=== PATIENT | female | born 1985 ===

== ENCOUNTER 2016-11-28 15:41 | Emergency (ER) | payer SELFPAY ==
[2016-11-28 15:41] VITALS: BMI 27.8
[2016-11-28 15:47] VITALS: BP 106/59; PULSE 83; RESP 18; TEMP 98.1; O2SAT 99
--- NOTE | 2016-11-28 16:03 | ED PDOC ---
Upper Extremity Pain/Injury Time Seen by Provider: 11/28/16 16:03 Chief Complaint (Nursing): Upper Extremity Problem/Injury Chief Complaint (Provider): finger laceration History Per: Patient Additional Complaint(s): 30-year-old right hand dominant female presents with puncture wound to left fourth digit sustained this past Saturday. Patient states she was chopping vegetables when she accidentally cut her finger. Patient states she sliced the top off of a wart that has been on her finger for several years. She has had intermittent bleeding since this past Saturday. Tetanus is up-to-date. Patient denies any pain, numbness or tingling to affected area. No medical attention was sought Saturday at time of incident. Past Medical History Reviewed: Historical Data, Nursing Documentation, Vital Signs Vital Signs: Last Vital Signs Temp 98.1 F 11/28/16 15:45 Pulse 83 11/28/16 15:45 Resp 18 11/28/16 15:45 BP 106/59 L 11/28/16 15:45 Pulse Ox 99 11/28/16 15:45 - Medical History PMH: No Chronic Diseases - Surgical History Surgical History: (x 2) - Family History Family History: States: No Known Family Hx - Living Arrangements Living Arrangements: With Family - Social History Current smoker - smoking cessation education provided: No Alcohol: None Drugs: Denies - Immunization History Hx Tetanus Toxoid Vaccination: Yes - Home Medications Home Medications: Ambulatory Orders Medication Instructions Recorded Nitrofurantoin Macrocrystals 100 mg PO BID #14 cap 02/19/16 [Macrobid] Multivit/Folic Acid/I 1 tab PO DAILY 08/30/16 [] oxyCODONE/Acetaminophen [Percocet 1 ea PO Q4 PRN 1 Days 09/02/16 5/325 mg Tab] - Allergies Allergies/Adverse Reactions: Allergies Allergy/AdvReac Type Severity Reaction Status Date / Time No Known Allergies Allergy Verified 11/28/16 15:45 Review of Systems ROS Statement: Except As Marked, All Systems Reviewed And Found Negative Constitutional: Negative for: Fever Musculoskeletal: Positive for: Other (puncture wound left hand) Physical Exam - Reviewed Nursing Documentation Reviewed: Yes Vital Signs Reviewed: Yes - Physical Exam Appears: Positive for: Well, No Acute Distress Skin: Negative for: Rash Extremity: Positive for: Other (Actively bleeding superficial puncture wound noted to palmar aspect of the left fourth digit proximally on volar aspect, full range of motion of the affected digit, normal sensation surrounding the wound and distally) Neurologic/Psych: Positive for: Alert, Oriented - ECG O2 Sat by Pulse Oximetry: 99 Pulse Ox Interpretation: Normal Medical Decision Making Medical Decision Making: Impression: puncture wound Procedure Note: Wound was cleansed with normal saline and Betadine, Gelfoam and sterile gauze wrap applied to affected area, neurovascular intact status post placement. Procedure tolerated well by patient with no complications. Patient was given wound care instructions. Disposition - Clinical Impression Clinical Impression: Puncture wound of finger - Patient ED Disposition Is Patient to be Admitted: No Counseled Patient/Family Regarding: Diagnosis, Need For Followup - Disposition Referrals: [facility] [Outside] Disposition: Routine/Home Disposition Time: 17:20 Condition: STABLE Additional Instructions: Keep bandage in place for 2 days, after 2 days remove gauze and excess foam. Over the counter tylenol for pain as needed. Follow up with primary care doctor in 2-3 days. Instructions: Puncture Wound (ED) Print Language: VIETNAMESE
[2016-11-28] MEDS ORDERED: Absorbable Gelatin Sponge Size 12-7 TP STA (17:06)
== END 2016-11-28 18:12 | disposition home or self-care (01) ==
LOC: H.ER 15:41
DX: S61.205A Unspecified open wound of left ring finger without damage to nail, initial encounter (principal); W26.0XXA Contact with knife, initial encounter; Y92.000 Kitchen of unspecified non-institutional (private) residence as the place of occurrence of the external cause

== ENCOUNTER 2016-12-14 13:54 | Emergency (ER) | payer OTHER ==
[2016-12-14 13:54] VITALS: BMI 27.8
[2016-12-14 14:40] VITALS: BP 122/77; PULSE 76; RESP 16; TEMP 97; O2SAT 99
--- NOTE | 2016-12-14 16:18 | ED PDOC ---
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 The patient reports that over the past several days she has noticed the wound has increased in size and has developed increased pain. She denies having any fever, new trauma or discharge from the affected area. Past Medical History Reviewed: Historical Data, Nursing Documentation, Vital Signs Vital Signs: Last Vital Signs Temp 97.0 F L 12/14/16 14:35 Pulse 76 12/14/16 14:35 Resp 16 12/14/16 14:35 BP 122/77 12/14/16 14:35 Pulse Ox 99 12/14/16 16:47 - Medical History PMH: No Chronic Diseases - Surgical History Surgical History: (x 2) - Family History Family History: States: No Known Family Hx - Immunization History Hx Tetanus Toxoid Vaccination: Yes - Home Medications Home Medications: Ambulatory Orders Medication Instructions Recorded Nitrofurantoin Macrocrystals 100 mg PO BID #14 cap 02/19/16 [Macrobid] Multivit/Folic Acid/I 1 tab PO DAILY 08/30/16 [] oxyCODONE/Acetaminophen [Percocet 1 ea PO Q4 PRN 1 Days 09/02/16 5/325 mg Tab] - Allergies Allergies/Adverse Reactions: Allergies Allergy/AdvReac Type Severity Reaction Status Date / Time No Known Allergies Allergy Verified 11/28/16 15:45 Review of Systems Constitutional: Negative for: Fever Musculoskeletal: Positive for: Other (puncture wound to the left ring finger; no discharge; no new trauma) Physical Exam - Reviewed Nursing Documentation Reviewed: Yes Vital Signs Reviewed: Yes - Physical Exam Appears: Positive for: Non-toxic, No Acute Distress Skin: Positive for: Normal Color, Warm, Dry Extremity: Positive for: Normal ROM (full range of motion actively of left ring finger.), Other (left fourth digit on landeros surface of proximal phalynx there is a circular erythematous plaque without surrounding erythema/pus.) Neurologic/Psych: Positive for: Alert, Oriented - ECG O2 Sat by Pulse Oximetry: 99 (RA) Pulse Ox Interpretation: Normal Medical Decision Making Medical Decision Makin:24 Clinical impression: pyogenic granuloma Initial Plan: I&D; refer to procedure note Patient is medically stable, and requires no further treatment in the ED at this time. Patient will be discharged home. Counseling was provided and all questions were answered regarding diagnosis and need for follow up with PCP. There is agreement to discharge plan. Return if symptoms persist or worsen. Scribe Attestation: Documented by Colette Cruz training under Radha Verde, acting as a scribe for Dalton Lopez PA-C. Provider Scribe Attestation: All medical record entries made by the Scribe were at my direction and personally dictated by me. I have reviewed the chart and agree that the record accurately reflects my personal performance of the history, physical exam, medical decision making, and the department course for this patient. I have also personally directed, reviewed, and agree with the discharge instructions and disposition. Disposition - Clinical Impression Clinical Impression: Pyogenic granuloma - Patient ED Disposition Is Patient to be Admitted: No Counseled Patient/Family Regarding: Diagnosis, Need For Followup - Disposition Referrals: [facility] [Outside] [facility] [Outside] Mina Shannon MD [Staff Provider] - Disposition: Routine/Home Disposition Time: 15:30 Condition: STABLE Additional Instructions: You have a pyogenic granuloma. You need to see a hand specialist to remove it. Instructions: Acute Rash (ED) Print Language: FRISIAN
== END 2016-12-14 15:55 | disposition home or self-care (01) ==
LOC: H.ER 13:54
DX: L98.0 Pyogenic granuloma (principal)

== ENCOUNTER 2018-01-07 20:07 | Emergency (ER) | payer SELFPAY ==
[2018-01-07 20:07] VITALS: BMI 27.8
[2018-01-07 20:16] VITALS: BP 105/72; PULSE 90; RESP 16; TEMP 97.3; O2SAT 99
[2018-01-07 21:36] LABS: HEMOGLOBIN 13.3 g/dL (12.0-16.0); MEAN CELL VOLUME 90.8 fl (81.0-99.0); MEAN CORPUSCULAR HEMOGLOBIN 30.9 pg (27.0-31.0); MEAN CORPUSCULAR HGB CONC 34.1 g/dL (33.0-37.0); RBC 4.29 Mil/uL (3.80-5.20); RED CELL DISTRIBUTION WIDTH 12.7 % (11.5-14.5); WHITE BLOOD COUNT 7.8 K/uL (4.8-10.8)
[2018-01-07 21:43] LABS: BLOOD UREA NITROGEN 12 mg/dl (7-17); CALCIUM 9.5 mg/dL (8.4-10.2); GFR AFRICAN-AMERICAN > 60; GFR NON-AFRICAN AMERICAN > 60
--- NOTE | 2018-01-07 22:21 | ED PDOC ---
HPI: Abdomen Time Seen by Provider: 01/07/18 20:41 Chief Complaint (Nursing): Abdominal Pain History Per: Patient History/Exam Limitations: no limitations Onset/Duration Of Symptoms: Days Current Symptoms Are (Timing): Still Present Location Of Pain/Discomfort: LLQ, Suprapubic Quality Of Discomfort: Cramping Additional Complaint(s): No PMHx, presenting with lower abdominal pain and vaginal bleeding, states it feels like a normal period, states that she had positive home test and her LMP was 11/21/17. Denies fevers, nausea, vomiting, diarrhea, lightheadedness, or other symptoms. Past Medical History Reviewed: Historical Data, Nursing Documentation, Vital Signs Vital Signs: Last Vital Signs Temp 97.3 F L 01/07/18 20:14 Pulse 90 01/07/18 20:14 Resp 16 01/07/18 20:14 BP 105/72 01/07/18 20:14 Pulse Ox 99 01/07/18 22:21 - Surgical History Surgical History: (x 2) - Family History Family History: States: Unknown Family Hx - Immunization History Hx Tetanus Toxoid Vaccination: Yes - Home Medications Home Medications: Ambulatory Orders Medication Instructions Recorded Nitrofurantoin Macrocrystals 100 mg PO BID #14 cap 02/19/16 [Macrobid] Multivit/Folic Acid/I 1 tab PO DAILY 08/30/16 [] oxyCODONE/Acetaminophen [Percocet 1 ea PO Q4 PRN 1 Days tab 09/02/16 5/325 mg Tab] - Allergies Allergies/Adverse Reactions: Allergies Allergy/AdvReac Type Severity Reaction Status Date / Time No Known Allergies Allergy Verified 01/07/18 20:14 Review of Systems ROS Statement: Except As Marked, All Systems Reviewed And Found Negative Gastrointestinal: Positive for: Abdominal Pain Genitourinary Female: Positive for: Vaginal Bleeding Physical Exam - Reviewed Nursing Documentation Reviewed: Yes Vital Signs Reviewed: Yes - Physical Exam Appears: Positive for: Well, Non-toxic, No Acute Distress Head Exam: Positive for: ATRAUMATIC, NORMAL INSPECTION, NORMOCEPHALIC Skin: Positive for: Normal Color, Warm, DRY Eye Exam: Positive for: EOMI, Normal appearance, PERRL ENT: Positive for: Normal ENT Inspection Neck: Positive for: Normal, Painless ROM Cardiovascular/Chest: Positive for: Regular Rate, Rhythm Respiratory: Positive for: CNT, Normal Breath Sounds Gastrointestinal/Abdominal: Positive for: Normal Exam, Soft Back: Positive for: Normal Inspection Extremity: Positive for: Normal ROM Neurologic/Psych: Positive for: Alert, Oriented - Laboratory Results Result Diagrams: 01/07/18 21:27 01/07/18 21:27 - ECG O2 Sat by Pulse Oximetry: 99 Pulse Ox Interpretation: Normal Medical Decision Making Medical Decision MakinPM A/P: Patient presenting with lower abd pain, vb -patient not rpegnant on urine -will check beta hcg -likely having miscarriage -beta hcg is 13, likely going down, advised patient to return in 2 days for repeat beta. Disposition - Clinical Impression Clinical Impression: Spontaneous - Disposition [facility]] Disposition: Routine/Home Disposition Time: 23:54 Condition: STABLE Additional Instructions: Por favor, regrese a la everardo de emergencia en dos butler para chequiar la bailee por BETA HCT (la prueba de embarasso). Instructions: Miscarriage, Dealing With Miscarriage Forms: [facility] (Kiswahili) Print Language: SWEDISH
== END 2018-01-07 23:23 | disposition home or self-care (01) ==
LOC: H.ER 20:07
DX: O03.9 Complete or unspecified spontaneous abortion without complication (principal)

== ENCOUNTER 2018-01-09 14:21 | Emergency (ER) | payer OTHER ==
[2018-01-09 14:21] VITALS: BMI 27.8
[2018-01-09 14:49] VITALS: O2SAT 99
[2018-01-09 15:24] LABS: BASO % 0.7 % (0.0-2.0); EOS % 0.6 % (0.0-4.0); HEMOGLOBIN 13.7 g/dL (12.0-16.0); LYMPH # 2.9 K/uL (1.0-4.3); LYMPH % 43.2 % (20.0-40.0); MEAN CELL VOLUME 91.5 fl (81.0-99.0); MEAN CORPUSCULAR HEMOGLOBIN 31.9 pg (27.0-31.0); MEAN CORPUSCULAR HGB CONC 34.8 g/dL (33.0-37.0); MEAN PLATELET VOLUME 8.4 fl (7.2-11.7); MONO # 0.5 K/uL (0.0-0.8); MONO % 7.6 % (0.0-10.0); NEUT # 3.2 K/uL (1.8-7.0); NEUT % 47.9 % (50.0-75.0); NRBC % 0.1 % (0.0-0.0); RBC 4.3 Mil/uL (3.80-5.20); RED CELL DISTRIBUTION WIDTH 12.9 % (11.5-14.5); WHITE BLOOD COUNT 6.7 K/uL (4.8-10.8)
[2018-01-09 15:31] LABS: BLOOD UREA NITROGEN 14 mg/dl (7-17); GFR AFRICAN-AMERICAN > 60; GFR NON-AFRICAN AMERICAN > 60
--- NOTE | 2018-01-09 15:38 | ED PDOC ---
HPI: General Adult <Kathy Schneider - Last Filed: 01/09/18 16:45> Chief Complaint (Provider): pelvic cramping and blood work History Per: Patient History/Exam Limitations: no limitations Onset/Duration Of Symptoms: Days Current Symptoms Are (Timing): Still Present <Ancelmo Bae III - Last Filed: 01/09/18 17:01> Time Seen by Provider: 01/09/18 14:58 Chief Complaint (Nursing): Abdominal Pain Additional Complaint(s): Patient reports positive home test on 01/07/18. Does not take OCP's, inconsistent condom use. -LMP 12/01/17 -vaginal bleeding 01/03/18-01/07/18 - PMD: none SurgHx: 2 c-sections, abdominoplasty Medictions: none Allergies: none (Kathy Schneider) 32 year old female presents to the emergency department with a complaint of a repeat blood work after she was seen here two days ago, 01/07/2018, for possible spontaneous . Patient's beta-HCG, quantitative was at 13. Patient returns today with mild pelvic cramping and no vaginal bleeding. ( Ancelmo Bae III) Supervising Attending Note - Supervising Attending Note The Documented history was done by the: Attending Physician - Attestation: I have personally seen and examined this patient.: Yes I have fully participated in the care of the patient.: Yes I have reviewed all pertinent clinical information, including history, physical exam and plan: Yes <Ancelmo Bae III - Last Filed: 01/09/18 17:01> Past Medical History <Kathy Schneider - Last Filed: 01/09/18 16:45> Reviewed: Historical Data, Nursing Documentation, Vital Signs - Medical History PMH: No Chronic Diseases - Surgical History Surgical History: (x 2) - Family History Family History: States: Unknown Family Hx - Social History Current smoker - smoking cessation education provided: No Alcohol: None Drugs: Denies - Immunization History Hx Tetanus Toxoid Vaccination: Yes <Ancelmo Bae III - Last Filed: 01/09/18 17:01> Vital Signs: Last Vital Signs Temp 98 F 01/09/18 14:46 Pulse 82 01/09/18 14:46 Resp 18 01/09/18 14:46 BP 105/70 01/09/18 14:46 Pulse Ox 99 01/09/18 15:41 - Home Medications Home Medications: Ambulatory Orders Medication Instructions Recorded Nitrofurantoin Macrocrystals 100 mg PO BID #14 cap 02/19/16 [Macrobid] Multivit/Folic Acid/I 1 tab PO DAILY 08/30/16 [] oxyCODONE/Acetaminophen [Percocet 1 ea PO Q4 PRN 1 Days tab 09/02/16 5/325 mg Tab] Ibuprofen [Motrin Tab] 600 mg PO Q6 PRN #15 tab 01/09/18 - Allergies Allergies/Adverse Reactions: Allergies Allergy/AdvReac Type Severity Reaction Status Date / Time No Known Allergies Allergy Verified 01/07/18 20:14 Review of Systems ROS Statement: Except As Marked, All Systems Reviewed And Found Negative (As per HPI, otherwise negative) Genitourinary Female: Positive for: Pelvic Pain (Mild, cramping. ). Negative for: Vaginal Bleeding <Ancelmo Bae III - Last Filed: 01/09/18 17:01> Physical Exam - Reviewed Nursing Documentation Reviewed: Yes Vital Signs Reviewed: Yes - Physical Exam Appears: Positive for: Well, No Acute Distress Head Exam: Positive for: ATRAUMATIC, NORMAL INSPECTION, NORMOCEPHALIC Skin: Positive for: Normal Color, Warm, Dry Neurologic/Psych: Positive for: Alert, Oriented (x3) <Ancelmo Bae III - Last Filed: 01/09/18 17:01> - Laboratory Results Result Diagrams: 01/09/18 15:05 01/09/18 15:05 - Progress Condition: Re-examined, Improved <Kathy Schneider - Last Filed: 01/09/18 16:45> - Laboratory Results Result Diagrams: 01/09/18 15:05 01/09/18 15:05 - ECG O2 Sat by Pulse Oximetry: 99 (RA) Pulse Ox Interpretation: Normal <Ancelmo Bae III - Last Filed: 01/09/18 17:01> - Progress ED Course And Treament: -Patient stable -BetaHcg level is 3.97 today which correlates with non females (Kathy Schneider) Medical Decision Making <Kathy Schneider - Last Filed: 01/09/18 16:45> <Ancelmo Bae III - Last Filed: 01/09/18 17:01> Medical Decision Making: ~ Time: 1458 Initial impression: Repeat blood work in setting of known and mild pelvic cramping Initial plan: --BMP --CBC w/ diff --Beta-HCG, quantitative --Reevaluation Scribe Attestation: Documented by Tayla Lowery, acting as a scribe for Ancelmo Bae DO. Provider Scribe Attestation: All medical record entries made by the Scribe were at my direction and personally dictated by me. I have reviewed the chart and agree that the record accurately reflects my personal performance of the history, physical exam, medical decision making, and the department course for this patient. I have also personally directed, reviewed, and agree with the discharge instructions and disposition. (Ancelmo Bae III) Disposition - Patient ED Disposition Is Patient to be Admitted: No Counseled Patient/Family Regarding: Diagnosis, Need For Followup - Disposition Disposition Time: 16:29 <Kathy Schneider - Last Filed: 01/09/18 16:45> <Ancelmo Bae III - Last Filed: 01/09/18 17:01> - Clinical Impression Clinical Impression: Complete - Disposition [facility]] Condition: STABLE Additional Instructions: Followup with MANAGER [facility] and return to ER for any worse or new symptoms. Prescriptions: Ibuprofen [Motrin Tab] 600 mg PO Q6 PRN #15 tab PRN Reason: Pain, Moderate (4-7) Instructions: Dealing With Miscarriage, Miscarriage (DC) Forms: [employer] (Cymraes) Print Language: SINGAPORE[place]
[2018-01-09 17:40] VITALS: BP 120/70; PULSE 72; RESP 20; TEMP 98.2
== END 2018-01-09 17:00 | disposition home or self-care (01) ==
LOC: H.ER 14:21
DX: O03.9 Complete or unspecified spontaneous abortion without complication (principal)